=== PATIENT | female | born 1990 | race Caucasian/White ===

== ENCOUNTER 2019-12-22 18:11 | Inpatient (IN) | payer BC ==
[2019-12-22] MEDS ORDERED: Lactated Ringers 1000 ML Bag* 1,000 ML IV ONE (18:48)
[2019-12-22] MEDS ORDERED: Buffered Lidocaine 1% SYRIN* 1 ML/SYRINGE INTRADERM ONE (18:48)
[2019-12-22] MEDS ORDERED: Dinoprostone* 10 MG VAG.SUPP VAGINAL ONE (18:48)
[2019-12-22] MEDS ORDERED: diPHENhydraMINE PO* 50 MG PO PRN (19:05)
--- NOTE | 2019-12-22 19:20 | HP ---
General Information - Reason for Visit 38 week IOL for gestational hypertension - General Information Maternal Age: 29 Grav: 2 Para: 0 SAB: 0 IEA: 1 Estimated Due Date: 01/06/20 Determined By: Early Ultrasound Gestational Age in Weeks/Days: 37 6/7 Maternal Blood Type and Rh: A Positive - Results this Serology/RPR Result: Non-Reactive Rubella Result: Immune HBsAg Result: Negative HIV Result: Negative GBS Culture Result: Negative Past Medical History Delivery History: See Records Delivery History Comment: no prior deliveries Pertinent Past Medical History: See Records Past Medical History Comment: hypothyroidism, borderline, not on replacement Pertinent Past Surgical History: None Pertinent Family History: Non-Contributory - Antepartal Records Antepartal Records: Reviewed, Complicated by: - hypothyroidism, polyhydramnios, gestational hypertension, abnormal SS with normal NIPT Review of Systems Constitutional: Comfortable CV Complaint: No Respiratory: Shortness of Breath: No Gastrointestinal: No Nausea/Vomiting, Normal Bowel Movement Genitourinary: No Dysuria, No Bleeding, No Leaking Fluid Musculoskeletal: No Epigastric Pain Neurological: No Headache, No Visual Changes Movement: Normal Exam Allergies/Adverse Reactions: Allergies Penicillins Allergy (Verified 12/05/19 18:15) Hives B/P: 152/83, t: 98.0, R: 20 - Measurements Height: 5 ft 6 in Weight: 195 lb Weight in lbs: [id number] Body Mass Index (BMI): 31.4 Pre- Weight: 168 lb Weight Gained This : 27 lbs and 0 ozs - Exam Breast: Breast Exam Deferred CVA: No CVA Tenderness Extremities: No Edema Heart: Normal Rhythm/Heart Sounds HEENT: No Significant Findings Lungs: Clear Bilaterally Reflexes: DTR 2+ Thyroid: No Thyromegaly - Abdominal Exam Abdomen Exam: Non-Tender, Fundal Height Consistent with Dates - Ultrasound/Biophysical Profile Ultrasound Status: Not Done Targeted Exam Findings See L&D Outpatient Visit Provider Note for Findings: N/A Estimated Weight: 7 lb by ayde Cervical Exam: Fingertip Effacement: 50% Station: -3 Presenting Part: Vertex Membrane Status: Intact Bleeding/Discharge: None EFM Findings - External Monitor Findings Baseline Heart Rate: 125 External Monitor Findings: Accelerations Present, No Pattern of Variable or Late Decelerations, Variability Moderate, Baseline Stable Contractions: Regular, Mild, 45-90 Seconds Contraction Frequency: 5-6 min Assessment/Plan - Assessment A: IUP at 37 6/7 weeks No evidence of metabolic acidemia - Category I FHR Gestational Hypertension Lynn Score: 2 Polyhydramnios P: PARQ discussion re: cervidil insert. Sylvia agreed to plan and cervidil placed at 1928. Will re-assess CBC, CMP, uric acid and collect UA Reassess PRN Anticipate SVB - Obstetrical Risk Factors Obstetrical Risk Factors: Gestational Hypertension - Plan Plan: Induction, Cervical Ripening, Admit - Anticipate Vaginal Delivery - Date/Time of Admission Date of Admission: 12/22/19 Time of Admission: 18:30
[2019-12-22 20:03] LABS: Urine Appearance Cloudy; Urine Bilirubin Negative (Negative); Urine Blood Negative (Negative); Urine Color Yellow; Urine Glucose Negative (Negative); Urine Ketones Negative (Negative); Urine Nitrite Negative (Negative); Urine Protein 1+(30 mg/dL) (Negative); Urine Urobilinogen Negative (Negative)
[2019-12-22 20:12] LABS: Urine Benzodiazepine Screen None Detected (None Detect); Urine Opiates Screen None Detected (None Detect)
[2019-12-22 20:13] LABS: Urine Bacteria Absent (Absent); Urine Red Blood Cell Absent (Absent); Urine Squamous Epithelial Cell Present (Absent); Urine White Blood Cell Trace(0-5/hpf) (Absent)
[2019-12-22] MEDS ORDERED: Acetaminophen TAB* 325 MG PO ONE (21:00)
--- NOTE | 2019-12-23 09:32 | PN ---
Progress Note - Progress Note Date of Service: 12/23/19 Note: S: Assuming care of Sylvia mendoza 29 year-old at 38 weeks here for induction of labor in a complicated by gestational hypertension without evidence of pre-eclampsia and polyhydramnios (CLAUDINE 29cm on Thursday12/19/2019). Was able to rest fitfully overnight with Cervidil in place. This morning notes some mild, intermittent cramping s/p Cervidil removal by RN at 0730 this morning. No VB. No LOF. Describes active FM. Denies headache, no visual changes. No RUQ pain. Ready to proceed with next step of induction. O: BP 133/93 HR 91 T 98.5 FHT 135bpm. Moderate variability. +Accels. No decels. UCs q 3-4 min, palpate mild VE 2cm/70% and soft/vtx -1 A: IUP at 38 weeks here for IOL in presence of gestational HTN and polyhydramnios No evidence of metabolic acidemia Lynn's Score: 8, favorable for induction P: Counseled for trial IV Pitocin vs. Cooks Catheter vs. Both. Pt with strong aversion to Cooks Catheter requests trial of IV pitocin. Discussed possibility of amniotomy. Pt to consider. Dr. Hook aware of pt presence and condition. Agrees with plan.
[2019-12-23] MEDS: Lactated Ringers 1000 ML Bag* 1,000 ML IV SCH ×4 (09:55→23:50)
[2019-12-23] MEDS ORDERED: Oxytocin in LR* 20 UNITS/1,000 ML BAG IVPB SCH (10:00)
[2019-12-23 10:36] LABS: ABS Eosinophils 0.1 10^3/ul (0-0.6); ABS Lymphocytes 1.9 10^3/ul (1.0-4.8); ABS Monocytes 0.9 10^3/ul (0-0.8); ABS Neutrophils 6.6 10^3/ul (1.5-7.7); Eosinophil % 0.7 %; Hematocrit 29 % (35-47); Lymphocyte % 20.3 %; Mean Corpuscular HGB Conc 34 g/dL (31-36); Mean Corpuscular Hemoglobin 30 pg (27-31); Mean Corpuscular Volume 89 fL (80-97); Mean Platelet Volume 9.1 fL (7.4-10.4); Nucleated Red Blood Cells % 0.1; Platelet Count 188 10^3/uL (150-450); Red Cell Distribution Width 14 % (10-15); White Blood Count 9.5 10^3/uL (3.5-10.8)
[2019-12-23 10:58] LABS: Albumin 3.1 g/dL (3.2-5.2); Albumin/Globulin Ratio 1.1 (1-3); BUN/Creatinine Ratio 14.1 (8-20); Calcium 8.8 mg/dL (8.6-10.3); EGFR African American 105.7 (>60); EGFR Non-African American 87.3 (>60); Globulin 2.9 g/dL (2-4); Total Bilirubin 0.3 mg/dL (0.2-1.0); Uric Acid 6.1 mg/dL (2.3-6.6)
--- NOTE | 2019-12-23 12:08 | PN ---
Progress Note - Progress Note Date of Service: 12/23/19 Note: Quick Note: Pt reports UCs with pitocin are more insistent but still able to speak through them. FHT Cat I. UCs q 1-3 at 6mu/min of IV pitocin. VE 3cm/70%/vtx -1. Recommend controlled amniotomy in presence of polyhydramnios. Reviewed the pros/ cons/risks/benefits/alternatives. All ?s answered. Pt agrees to amniotomy but prefers to eat lunch first.
--- NOTE | 2019-12-23 13:59 | PN ---
Progress Note - Progress Note Date of Service: 12/23/19 Note: S: Pt ready to undergo aminiotomy O: BP 145/92 HR 90 T 98.2 FHT 135bpm. Moderate variability. +Accels. No decels UCs q 2-3 min. IV pitocin at 6mu/min VE 3cm/70%/vtx -1, Amniotomy to moderate amount of clear fluid A: IUP at 38 weeks with gestational hypertension and polyhydramnios Latent labor No evidence of metabolic acidemia P: Amniotomy done. Pt interested in pitocin rest and time in tub if possible. Will continue to monitor UC pattern over the next 30 min with IV pitocin off and if appropriate ok to try tub.
[2019-12-23] MEDS ORDERED: OBEPIDURAL* 250 ML EPIDURAL ONE (16:04)
--- NOTE | 2019-12-23 17:30 | PN ---
Progress Note - Progress Note Date of Service: 12/23/19 Note: S: Comfortable s/p epidural placement O: BP 141/82 HR 100 FHT 125bpm. Moderate variability. +Accels. No decels UCs q 2-4, IV pit remains off VE 3-4cm/100%/vtx -1 A: IUP at 38 weeks with gestational hypertension and polyhydraminios Early active labor No evidence of metabolic acidemia P: Enc rest. Close monitoring of maternal/ status as well as UC pattern. Consider restart of IV pitocin if contractions space out.
[2019-12-23] MEDS ORDERED: Acetaminophen TAB* 325 MG PO ONE (19:45)
[2019-12-23] MEDS ORDERED: ceFOXitin 2 GM IVPREMIX* 2 GM/50 ML BAG ONE (20:04)
--- NOTE | 2019-12-23 20:07 | PN ---
Progress Note - Progress Note Date of Service: 12/23/19 Note: S: Paged by RN to evaluate patient given increased discomfort despite epidural and regular use of bolus button, increased sensation of pressure and new onset maternal temperature. Pt denies cough, congestion, myalgias, chest tightness and otherwise feels well just uncomfortable with uterine contractions. Both she and her report that they have been social distancing and mostly home for the past 3 weeks except for essential trips to the OB office and groceries. He is afebrile (98.7) at this time and also denies cough, congestion, myalgias, chest tightness. O: BP 151/94 HR 100 T 100.4 degrees orally FHT 150bpm. Moderate variability. +Accels. No decels UCs q 2 min. IV pitocin at 4mu/min VE 5-6/100%/vtx -1 A: IUP at 38 weeks with gestational hypertension and polyhydramnios Active labor Maternal temperature in labor. Suspect chorioamnionitis No evidence of metabolic acidemia P: PO Tylenol given. In consultation with Dr. Hook will initiate Cefoxitin 2 grams q 8 hours. He is aware of her childhood allergy to penicillins (rash vs. hives) but feels that potential benefits of antibiotic therapy in labor in presence of fever outweigh potential risks for cross reaction. Will administer and monitor closely. Anesthesia paged for consult on increased discomfort in labor despite epidural and use of bolus button.
[2019-12-23] MEDS: ceFOXitin 2 GM IVPREMIX* 2 GM/50 ML BAG IVPB SCH (20:10)
[2019-12-23] MEDS ORDERED: fentaNYL* 50 MCG/ML 2 ML VIAL (100 MCG VIAL) IV SLOW PU ONE (20:18)
[2019-12-23] MEDS ORDERED: fentaNYL* 50 MCG/ML 2 ML VIAL (100 MCG VIAL) ONE (20:48)
[2019-12-23] MEDS ORDERED: Lidocaine 1.5% EPI 1:200,000* 30 ML SDV ONE (20:48)
[2019-12-23] MEDS ORDERED: Bupivacaine 0.25% SDV PF* 10 ML VIAL INJ ONE (20:57)
[2019-12-23] MEDS ORDERED: Phenylephrine 40 MCG/ML SYRINGE IV PUSH PRN ×2 (21:19)
[2019-12-23] MEDS ORDERED: Sodium Citrate/Citric Acid* 15 ML UDC PO PRN (21:19)
[2019-12-23] MEDS ORDERED: Famotidine TAB* 20 MG PO PRN (21:19)
[2019-12-23] MEDS ORDERED: Lactated Ringers 1000 ML Bag* 1,000 ML IV ONE (21:19)
[2019-12-23] MEDS ORDERED: EPHEDrine (Pressors)* 50 MG/ML VIAL IV PUSH PRN ×2 (21:19)
[2019-12-23] MEDS ORDERED: Lactated Ringers 1000 ML Bag* 500 ML IV PRN ×2 (21:19)
[2019-12-23] MEDS ORDERED: OBEPIDURAL* 250 ML EPIDURAL SCH (22:00)
--- NOTE | 2019-12-23 22:15 | PN ---
Progress Note - Progress Note Date of Service: 12/23/19 Note: S: Pt comfortable following epidural bolus by Dr. Montelongo. Feeling a lot of rectal pressure O: BP 141/88 HR 100 T 99 FHT 140bpm. Moderate variability. +Accels. Rare variable decels. UCs q 2 min, IV pitocin at 6mu/min VE 9cm/100%/vtx -1 A: IUP at 38 weeks with gestational hypertension and polyhydramnios Active labor Cat II FHT - doubt metabolic acidemia P: Reassured by labor progress. Close monitoring of maternal/ status. Anticipate trial of pushing soon
--- NOTE | 2019-12-24 00:39 | PN ---
Progress Note - Progress Note Date of Service: 12/24/19 Note: S: Pt breathing through UCs. Using bolus button regularly with modest relief. Reports increased rectal pressure O: BP 137/86 HR 94 T 98.3 FHT 140bpm. Moderate variability. +Accels. Rare early type vs. variable decels UCs q 2-3 min, IV pitocin at 8mu/min VE Anterior lip/100%/vtx +1 A: IUP at 38-1/7 with gestational hypertension and polyhydramnios Active labor Cat II FHT - doubt metabolic acidemia Maternal temperature in labor - suspect chorioamnionitis P: Continue IV pitocin. Active maternal position changes. Encouraged trial of hands and knees. Pt amenable. Close monitoring of maternal/ status. Anticipate trial of pushing soon. Continue antibiotics for suspected chorioamnionitis
--- NOTE | 2019-12-24 03:53 | PROCNOTE ---
[facility] OB: Delivery Note - Delivery A Date of : 12/24/19 Time of : 03:02 [place] Sex: Female - "Jaz" Weight at : 8 lb 4 oz Score 1 Minute: 6 Score 5 Minutes: 9 Gestational Age in Weeks and Days at Delivery: 38 Weeks and 1 Days Delivery Method: Spontaneous Vaginal Labor: Induced - for gestational hypertension complicated by polyhydramnios Did Patient attempt ?: N/A, No Previous Amniotic Fluid: Clear Estimated Blood Loss: 700 Anesthesia/Analgesia: IM/IV - Fentanyl x 1 while awaiting anesthesia, CEI for Labor - placed by Dr. Laureano. Bolused by Dr. Montelongo Delivered By: Rajeev Krishnan - Nursery Level of Nursery: Regular/Bedside - Perineum Perineal Injury: Right Mediolateral - repaired with 2-0 and 3-0 Vicryl in the usual fashion. Anatomy restored and good hemostasis achieved Perineal Repair: By Delivering Practioner - Events Delivery Events of Note: Pitocin During Labor, Shoulder Dystocia - x 90 seconds. Resolved with Vidya, Hamilton Corkscrew, Mediolateral episiotomy and delivery of the posterior arm, Chorio in Labor - treated with antibiotics, Post- Bleeding - Meds Given - Risk for Falls Delivered OB Patient- Risk for Falls: Heavy Bleeding Fall Risk: Patient is at High Risk for Falls - Additional Delivery Notes Additional Delivery Notes: Sylvia is a 29 year-old G1 now P1 who was admitted for induction of labor in the presence of gestational hypertension complicated by polyhydramnios. Received Cervidil x 1 followed by IV pitocin and amniotomy to copious clear fluid which led to onset active labor with expected progression to complete. Length of active phase 18 hours, 40 min. Pushed x 1 hour, 14 min. liveborn female. Slow controlled delivery of head. Asynclitic OA to ROT. Shoulders did not deliver with maternal push. Dystocia identified and emergency light activated. Pt placed in Vidya and encouraged to push. Hamilton corkscrew maneuver attempted without success then attempted delivery posterior arm. Right mediolateral episiotomy cut. CNM able to successfully deliver the posterior arm and resolve the dystocia. Length of time from delivery of head to delivery of body was 90 seconds. initially stunned. Cord milked, clamped x 2 and cut. Infant to warmer for evaluation by special care nurse. Apgars 6/9. Bilateral movement of upper extremities noted but initially cautious of moving left arm. Will continue to monitor and follow-up with resource room special education teacher. Spontaneous delivery intact placenta. Membranes complete. Fundus initially atonic with brisk bleeding noted. IV pitocin infusing. 800mcg Cytotec given NE x 1. Fundus firmed to massage and remained firm. Repair as above. During repair persistent trickle of bleeding noted despite repeated fundal massage. After repair CNM manually removed an additional 150cc of clot from the lower uterine segment for a total EBL of 700mL. At time of note mother and infant in stable condition. Breast feeding initiated.
[2019-12-24] MEDS ORDERED: Acetaminophen TAB* 325 MG PO PRN (03:55)
[2019-12-24] MEDS ORDERED: Misoprostol TAB* 200 MCG PR ONE (03:56)
[2019-12-24] MEDS ORDERED: Lactated Ringers 1000 ML Bag* 1,000 ML IV SCH (04:00)
[2019-12-24] MEDS: ceFOXitin 2 GM IVPREMIX* 2 GM/50 ML BAG IVPB SCH ×3 (04:00→20:17)
[2019-12-24] MEDS ORDERED: Oxytocin in LR* 20 UNITS/1,000 ML BAG IVPB SCH (04:00)
[2019-12-24] MEDS ORDERED: Oxytocin in LR* 20 UNITS/1,000 ML BAG IVPB ONE (04:02)
[2019-12-24] MEDS: Ibuprofen TAB* 600 MG PO SCH ×3 (04:22→18:02)
[2019-12-24] MEDS: Witch Hazel PAD* JAR TOPICAL PRN (04:23)
[2019-12-24] MEDS: Dibucaine 1% 28.35 GM TUBE PR PRN (04:23)
[2019-12-24] MEDS ORDERED: Lidocaine 1% INJ* 10 MG/ML 30 ML SDV ONE (06:25)
[2019-12-24] MEDS: Docusate CAP* 100 MG PO SCH ×3 (08:23→20:17)
[2019-12-24 11:15] LABS: ABS Basophils 0.1 10^3/ul (0-0.2); ABS Lymphocytes 1.7 10^3/ul (1.0-4.8); ABS Monocytes 1.4 10^3/ul (0-0.8); ABS Neutrophils 10.7 10^3/ul (1.5-7.7); Eosinophil % 0.1 %; Hematocrit 21 % (35-47); Hemoglobin 7.2 g/dL (12.0-16.0); Lymphocyte % 12.4 %; Mean Corpuscular HGB Conc 34 g/dL (31-36); Mean Corpuscular Hemoglobin 30 pg (27-31); Mean Corpuscular Volume 89 fL (80-97); Mean Platelet Volume 8.7 fL (7.4-10.4); Platelet Count 136 10^3/uL (150-450); Red Cell Distribution Width 13 % (10-15)
[2019-12-25] MEDS: Ibuprofen TAB* 600 MG PO SCH ×4 (06:19→18:10)
[2019-12-25 06:24] LABS: ABS Basophils 0.1 10^3/ul (0-0.2); ABS Eosinophils 0.2 10^3/ul (0-0.6); ABS Lymphocytes 3.4 10^3/ul (1.0-4.8); ABS Monocytes 1.2 10^3/ul (0-0.8); ABS Neutrophils 8.7 10^3/ul (1.5-7.7); Eosinophil % 1.6 %; Hematocrit 25 % (35-47); Hemoglobin 8.4 g/dL (12.0-16.0); Lymphocyte % 24.8 %; Mean Corpuscular HGB Conc 33 g/dL (31-36); Mean Corpuscular Hemoglobin 30 pg (27-31); Mean Corpuscular Volume 90 fL (80-97); Mean Platelet Volume 8.2 fL (7.4-10.4); Platelet Count 203 10^3/uL (150-450); Red Blood Count 2.82 10^6 /uL (3.70-4.87); Red Cell Distribution Width 14 % (10-15); White Blood Count 13.5 10^3/uL (3.5-10.8)
[2019-12-25] MEDS: Docusate CAP* 100 MG PO SCH ×4 (08:52→21:03)
[2019-12-25] MEDS: Ferrous Gluconate TAB* 324 MG TAB PO SCH ×2 (08:52→21:03)
--- NOTE | 2019-12-25 09:16 | PTEDU ---
Patient Name: VINH BURGOS VINH BURGOS selected video: BBOB: Bonding Through Massage to view on 12/25/2019 at 9:15:56 AM from [id number]
[2019-12-26] MEDS: Ibuprofen TAB* 600 MG PO SCH ×2 (00:13→05:51)
[2019-12-26 07:47] VITALS: BP 118/79
[2019-12-26] MEDS: Ferrous Gluconate TAB* 324 MG TAB PO SCH (08:41)
[2019-12-26] MEDS: Docusate CAP* 100 MG PO SCH (08:42)
[2019-12-26] MEDS: Witch Hazel PAD* JAR TOPICAL PRN (08:46)
[2019-12-26] MEDS: Dibucaine 1% 28.35 GM TUBE PR PRN (08:46)
== END 2019-12-26 11:30 | disposition home or self-care (01) | DRG 560 ==
LOC: MCHOBOUT 18:11 → MCHOB 20:17
PROVIDERS: ADMIT Midwife; ATTEND Midwife
PROC: 10E0XZZ Delivery of Products of Conception, External Approach (ICD-10-PCS; principal; 2019-12-24)
PROC: 3E033VJ Introduction of Other Hormone into Peripheral Vein, Percutaneous Approach (ICD-10-PCS; 2019-12-24)
PROC: 10907ZC Drainage of Amniotic Fluid, Therapeutic from Products of Conception, Via Natural or Artificial Opening (ICD-10-PCS; 2019-12-24)
PROC: 0W8NXZZ Division of Female Perineum, External Approach (ICD-10-PCS; 2019-12-24)
PROC: 0KQM0ZZ Repair Perineum Muscle, Open Approach (ICD-10-PCS; 2019-12-24)
DX: O75.2 Pyrexia during labor, not elsewhere classified (principal); O72.1 Other immediate postpartum hemorrhage; Z37.0 Single live birth; O13.4 Gestational [pregnancy-induced] hypertension without significant proteinuria, complicating childbirth; O40.9XX0 Polyhydramnios, unspecified trimester, not applicable or unspecified; O99.284 Endocrine, nutritional and metabolic diseases complicating childbirth; E03.9 Hypothyroidism, unspecified; O70.1 Second degree perineal laceration during delivery; O66.0 Obstructed labor due to shoulder dystocia; O76 Abnormality in fetal heart rate and rhythm complicating labor and delivery; O41.1290 Chorioamnionitis, unspecified trimester, not applicable or unspecified; O90.81 Anemia of the puerperium; D64.9 Anemia, unspecified; Z3A.38 38 weeks gestation of pregnancy
CPT/HCPCS: 36415; 59200; 80053; 80307; 81003; 81015; 84550; 85025; 86850; 86900; 86901; 87086; A9270-GY; G0480; J0694; J3010; J3490

== ENCOUNTER 2021-09-09 15:35 | Inpatient (IN) ==
[2021-09-09] MEDS ORDERED: Buffered Lidocaine 1% SYRIN 1 ml INTRADERM ONE (16:29)
[2021-09-09] MEDS ORDERED: Lactated Ringers 1000 ml BAG 1,000 ML IV ONE (16:29)
[2021-09-09 16:31] LABS: Urine Appearance Cloudy; Urine Bilirubin Negative (Negative); Urine Blood Negative (Negative); Urine Color Yellow; Urine Glucose 1+(50 mg/dL) (Negative); Urine Ketones Negative (Negative); Urine Nitrite Negative (Negative); Urine Protein Negative (Negative); Urine Specific Gravity 1.018 (1.002-1.030); Urine Urobilinogen Negative (Negative)
[2021-09-09] MEDS ORDERED: Lactated Ringers 1000 ml BAG 1,000 ML IV SCH (17:00)
[2021-09-09 17:02] LABS: ABS Basophils 0.1 10^3/ul (0-0.2); ABS Eosinophils 0.1 10^3/ul (0-0.6); ABS Lymphocytes 2.5 10^3/ul (1.0-4.8); ABS Monocytes 1.4 10^3/ul (0-0.8); ABS Neutrophils 9.8 10^3/ul (1.5-7.7); Eosinophil % 0.4 %; Hematocrit 34 % (35-47); Hemoglobin 11.2 g/dL (12.0-16.0); Lymphocyte % 18.1 %; Mean Corpuscular HGB Conc 33 g/dL (31-36); Mean Corpuscular Hemoglobin 29 pg (27-31); Mean Corpuscular Volume 89 fL (80-97); Mean Platelet Volume 7.7 fL (7.4-10.4); Platelet Count 245 10^3/uL (150-450); Red Blood Count 3.83 10^6 /uL (3.70-4.87); Red Cell Distribution Width 14 % (10-15); White Blood Count 13.9 10^3/uL (3.5-10.8)
[2021-09-09 17:20] LABS: Albumin 3.5 g/dL (3.2-5.2); Albumin/Globulin Ratio 1.2 (1-3); Calcium 9.3 mg/dL (8.6-10.3); Potassium 3.9 mmol/L (3.5-5.0); Total Bilirubin 0.3 mg/dL (0.2-1.0); Total Protein 6.5 g/dL (6.4-8.9); Uric Acid 4.1 mg/dL (2.3-6.6); eGFR CKD-EPI 125.8 (>60)
[2021-09-09] MEDS ORDERED: Dinoprostone 10 MG VAG.SUPP VAGINAL ONE (17:24)
[2021-09-09] MEDS ORDERED: Calcium Carb (TUMS) 500 mg CHEW TAB PO SCH (18:00)
[2021-09-09 21:56] LABS: Urine Benzodiazepine Screen None Detected (None Detect); Urine Cannabinoids Screen None Detected (None Detect); Urine Opiates Screen None Detected (None Detect)
[2021-09-09] MEDS ORDERED: Calcium Carb (TUMS) 500 mg CHEW TAB PO PRN (22:17)
[2021-09-10] MEDS ORDERED: Sodium Citrate/Citric Acid LIQ 15 ML UDC ONE (01:26)
[2021-09-10] MEDS ORDERED: ceFOXitin 2 GM IVPREMIX 2 GM/50 ML BAG ONE (01:27)
[2021-09-10] MEDS ORDERED: fentaNYL 100 mcg/2 ml 50 MCG/ML VIAL ONE (01:31)
[2021-09-10] MEDS ORDERED: Morphine PF AMP (0.5MG/ML) 5 MG/10 ML AMP ONE (01:31)
[2021-09-10] MEDS ORDERED: Phenylephrine 40 mcg/mL 10mL (400mcg) SYRINGE ONE (01:40)
[2021-09-10] MEDS ORDERED: Oxytocin 10 UNITS/ML 1 ML VIAL ONE ×2 (01:51→02:11)
[2021-09-10] MEDS ORDERED: Acetaminophen IV 1 GM/100ML 100 ML IV ONE ×2 (02:07→04:55)
[2021-09-10] MEDS ORDERED: Naloxone 0.4 mg VIAL 0.4 mg/ml 1 ml VIAL IV PRN ×2 (02:07)
[2021-09-10] MEDS ORDERED: Naloxone 4 mg VIAL (10 ml) 2 MG in NS 0.9% 250 ml 250 ML IV PRN (02:07)
[2021-09-10] MEDS ORDERED: oxyCODONE/Acetamin 5/325 mg TAB PO PRN (02:07)
[2021-09-10] MEDS ORDERED: Ondansetron 4 mg VIAL 2 MG/ML 2 ml VIAL IV PRN ×2 (02:07)
[2021-09-10] MEDS ORDERED: fentaNYL 100 mcg/2 ml 50 MCG/ML VIAL IV PRN (02:07)
[2021-09-10] MEDS ORDERED: Oxytocin in LR 20 UNITS/1,000 ML BAG IVPB ONE (02:56)
[2021-09-10] MEDS ORDERED: Glycerin ADULT 2.4 gm SUPP PR PRN (03:14)
[2021-09-10] MEDS ORDERED: Dibucaine 1% OINT 28.35 GM TUBE PR PRN (03:14)
[2021-09-10] MEDS ORDERED: Witch Hazel PAD JAR TOPICAL PRN (03:14)
[2021-09-10] MEDS ORDERED: Oxytocin in LR 20 UNITS/1,000 ML BAG IVPB SCH (04:00)
[2021-09-10] MEDS ORDERED: Lactated Ringers 1000 ml BAG 1,000 ML IV SCH (04:00)
[2021-09-11 07:37] LABS: ABS Basophils 0.1 10^3/ul (0-0.2); ABS Eosinophils 0.1 10^3/ul (0-0.6); ABS Lymphocytes 2.1 10^3/ul (1.0-4.8); ABS Monocytes 1.1 10^3/ul (0-0.8); ABS Neutrophils 8.7 10^3/ul (1.5-7.7); Eosinophil % 1.1 %; Hematocrit 28 % (35-47); Hemoglobin 9.5 g/dL (12.0-16.0); Lymphocyte % 17.4 %; Mean Corpuscular HGB Conc 34 g/dL (31-36); Mean Corpuscular Hemoglobin 31 pg (27-31); Mean Corpuscular Volume 90 fL (80-97); Mean Platelet Volume 7.7 fL (7.4-10.4); Platelet Count 207 10^3/uL (150-450); Red Cell Distribution Width 14 % (10-15); White Blood Count 12.1 10^3/uL (3.5-10.8)
[2021-09-11 07:39] VITALS: BP 130/75
== END 2021-09-11 13:55 | disposition home or self-care (01) | DRG 540 ==
LOC: MCHOBOUT 15:35 → MCHOB 16:31
PROVIDERS: ADMIT Obstetrics & Gynecology; ATTEND Obstetrics & Gynecology